=== PATIENT | male | born 1940 | race Caucasian/White ===

== ENCOUNTER 2017-12-10 12:46 | Inpatient (IN) ==
--- NOTE | 2017-12-10 10:45 | Anesthesia Evaluation PreOp ---
Date of Encounter: 12/10/17 Time of Encounter: 13:41 - Past History Planned Operation: ORIF LEFT ANKLE FRACTURE Cardiac History: Hyperlipidemia Pulmonary History: Denies Any Significant HX CLAIM REVIEW MEDICAL DIRECTOR History: Denies Any Significant HX Other Medical History: Renal (CKD), Other (CA PROSTATE, IN REMISSION, OBESITY, BMI 34) - Meds/Allergy Pre-op Review Medications Reviewed: Yes Allergies Reviewed: Yes Beta Blockers on Current Med List: No Anesthesia Results - Labs Laboratory Last Values WBC 6.7 K/mcL (4.3-11.1) 12/03/17 09:29 RBC 4.95 M/mcL (4.19-5.50) 12/03/17 09:29 Hgb 14.2 g/dL (12.9-16.9) 12/03/17 09:29 Hct 44.5 % (37.5-50.1) 12/03/17 09:29 MCV 89.9 fL (83.0-100.0) 12/03/17 09:29 MCH 28.7 pg (28.0-33.3) 12/03/17 09:29 MCHC 31.9 g/dL (31.6-35.5) 12/03/17 09:29 RDW 13.6 % (11.5-14.5) 12/03/17 09:29 Plt Count 270 K/mcL (140-400) 12/03/17 09:29 MPV 11.6 fL (9.4-12.4) 12/03/17 09:29 Immature Gran % 0.4 % (0-4) 12/03/17 09:29 Seg Neutrophils % 69.8 % 12/03/17 09:29 Lymphocytes % 16.4 % 12/03/17 09:29 Monocytes % 8.2 % 12/03/17 09:29 Eosinophils % 4.0 % 12/03/17 09:29 Basophils % 1.2 % 12/03/17 09:29 Neutrophils # 4.7 K/mcL (1.6-8.9) 12/03/17 09:29 Lymphocytes # 1.1 K/mcL (0.6-4.6) 12/03/17 09:29 Monocytes # 0.6 K/mcL (0.0-1.3) 12/03/17 09:29 Eosinophils # 0.3 K/mcL (0.0-0.6) 12/03/17 09:29 Basophils # 0.1 K/mcL (0.0-0.2) 12/03/17 09:29 Sodium 137 mEq/L (136-145) 12/03/17 09:29 Potassium 4.5 mEq/L (3.5-5.1) 12/03/17 09:29 Chloride 105 mEq/L (98-107) 12/03/17 09:29 Carbon Dioxide 23 mEq/L (23-29) 12/03/17 09:29 BUN 13 mg/dL (8-23) 12/03/17 09:29 Creatinine 1.28 mg/dL (0.70-1.30) 12/03/17 09:29 Est GFR ( Amer) > 60 (> 60) 12/03/17 09:29 Est GFR (Non-Af Amer) 54 (> 60) L 12/03/17 09:29 BUN/Creatinine Ratio 10 (6-26) 12/03/17 09:29 Glucose 112 mg/dL (70-105) H 12/03/17 09:29 Calculated Osmolality 285 (280-300) 12/03/17 09:29 Calcium 9.3 mg/dL (8.6-10.3) 12/03/17 09:29 Anesthesia Exam O2 Sat Height 1.7 m Weight 98.883 kg BMI 34 Vital Signs Temp Pulse Resp BP Pulse Ox 98.2 F 68 18 148/81 96 12/10/17 13:04 12/10/17 13:04 12/10/17 13:04 12/10/17 13:04 12/10/17 13:04 NPO (# of Hours): 8 - HEENT Mallampati: I Teeth: Normal Oral Opening: Greater than 3 - Cardiac Rhythm: Regular - Pulmonary Breath Sounds: bilateral Clear Respiratory Effort: Symmetrical Anesthesia Assess/Plan ASA Score: 2 Modified Eduardo Scale for Level of Consciousness: Cooperative, oriented, and tranquil Anesthetic Plan: Regional (SAB FOR PRIMARY ANESTHESIA AND POPLITEAL/SAPHENOUS NERVE BLOCK FOR POST OPERATIVE PAIN) Monitoring Plan: Standard Monitors Recovery Plan: PACU Anes Supervising Prov Stmt: Forsake LIST NOT UPDATED THIS VISIT PATIENT'S CHART AND CURRENT MEDICATIONS REVIEWED CURRENT MEDICATIONS: Taking Simvastatin 20 MG Tablet, Sig: Orally Taking Terazosin HCl 10 MG Capsule, Sig: Orally Patient informed and consented. Risks, benefits, and alternatives discussed. Patient wishes to proceed.
[2017-12-10] MEDS ORDERED: ROPIVACAINE HCL/PF 0.5% 30 ML VIAL ONE (13:26)
[2017-12-10] MEDS ORDERED: CeFAZolin Syr 2,000MG/20 ML 2,000 MG/20 ML SYRINGE IVPB ONE (13:48)
[2017-12-10] MEDS: Ringers Solution, Lactated 1,000 ML IVC SCH (14:01)
[2017-12-10] MEDS ORDERED: *HR* Propofol 200 MG/20 ML VIAL IVP ONE ×5 (14:32→17:18)
[2017-12-10] MEDS ORDERED: *HR* FentaNYL (PF) 100 MCG/2 ML VIAL ONE ×3 (14:32→16:22)
[2017-12-10] MEDS ORDERED: Lidocaine -MPF 2% 2 ML VIAL ONE ×3 (15:48→16:23)
--- NOTE | 2017-12-10 16:11 | History & Physical Report ---
Date of Encounter: 12/10/17 Time of Encounter: 04:00 24 Hour HP Update - Instructions Instructions: If the History and Physical is less than 30 days old and was completed prior to A.M. admission and or procedure and has NOT been updated on calendar day of procedure please complete this update prior to performing procedure. - Update Patient reports changes in Medical Condition: No Changes in examination, assessment, or condition: No Changes in Medication: No Preop tests/diagnostics Reviewed: Yes Surgery Remains Indicated: Yes Consent for Planned Operative Procedure(s) Verified: Yes - Attending Attestation proceed
[2017-12-10] MEDS ORDERED: *HR* Midazolam HCl 2 MG/2 ML VIAL ONE (16:12)
[2017-12-10] MEDS ORDERED: Ondansetron 4 MG/2 ML VIAL ONE (16:12)
[2017-12-10] MEDS ORDERED: Lidocaine -MPF 1% 5 ML AMPUL ONE (16:27)
--- NOTE | 2017-12-10 17:03 | Anesthesia Procedures ---
Date of Encounter: 12/10/17 Time of Encounter: 16:50 Procedures: Anesthesia - Nerve Block Procedure Date: 12/10/17 Time: 16:50 Allergies/Adv Reactions: nka Surgical Procedure: left ankle orif Checklist: Correct Patient Identifier, Correct procedure, History checked Correct side: Left Blood Thinner: No Monitor Applied: EKG, BP, Pulse Oximetry Indication: Post Op Analgesia Pre-op Neuro Deficits: No Block Type: Popliteal (30ml), Other (adductor canal 10ml 0.5% ropi) Catheter placed: No Sterile Technique: Yes Ultrasound used: Yes Anatomy identified: Yes Visual spread of Local: Yes Neuro Stimulation: No Blood on Needle Aspiration: No Smooth Injection of Local: Yes Pain with Injection of Local: No Prep: Chlorhexadine Needle: 21 x 100 mm Stimuplex Local: Ropivacaine, Other (decadron) Volume (cc): 40 Number of Attempts: 1 Complications: None/effective block Vitals: Vital Signs/O2 Sat/Glucose, Most Recent Temp Pulse Resp BP Pulse Ox 98.2 F 59 18 118/68 97 12/10/17 13:04 12/10/17 16:54 12/10/17 13:04 12/10/17 16:54 12/10/17 16:54
--- NOTE | 2017-12-10 17:23 | Anesthesia Procedures ---
Date of Encounter: 12/10/17 Time of Encounter: 16:45 Procedures: Anesthesia - Epidural/Spinal Patient ID/Chart reviewed: Yes Patient examined: Yes Supplemental Oxygen: Nasal Cannula Supplemental Oxygen Rate (L/min): 2 Sedation: Versed (mg): 1 Sedation: Fentanyl (mcg): 50 Site Prep: Aseptic Technique, Sterile prep and drape, 0.5% Chlorhexidine/Alcohol Patient position: upright Local Anesthetic: Lidocaine 1% Amount of Local Anesthetic used: 2 Interspace Used: L4-L5 Blood: No CSF: Yes Paresthesia: No Spinal Needle Gauge: 22 Spinal Dose: 3ml 0.5% marcaine PF Vitals + FHT's: Vital Signs/O2 Sat, Most Current Temp Pulse Resp BP Pulse Ox 98.2 F 59 18 118/68 97 12/10/17 13:04 12/10/17 16:54 12/10/17 13:04 12/10/17 16:54 12/10/17 16:54
[2017-12-10] MEDS ORDERED: Ondansetron 4 MG/2 ML VIAL IVP ONE (17:25)
--- NOTE | 2017-12-10 18:11 | Operative Note ---
Date of procedure: 12/10/17 Pre-op diagnosis: left ankle fracture Post-op diagnosis: same Procedure: ORIF left medial malleolus fracture ORIF of syndesmosis Implants: synthes 3.0mm partially threaded cannulated screw Arthrex tight rope Complications: none Anesthesia: other (spinal block), IV sedation Surgeon: Billy Mandel Was there an resident assistant cna present: No Estimated blood loss (cc): 10 Specimen: none Condition: stable Disposition: PACU Procedure in Detail: Indications: 77-year-old male with pronation external rotation type ankle fracture and high fibula [place] fracture with increasing displacement of the medial malleolar fracture on outside facility xrays referred by Dr. Cuevas. The nature of the above procedures, risks versus benefits potential complications consequences of surgery and his condition discussed at length. 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 All of his questions have been answered and the informed consent was signed. Patient had been placed on outpatient in a bed order. Patient was taken from the preoperative holding area given a popliteal block by anesthesia [facility] operating room placed on the operating room table in the supine position. The left lower extremity was scrubbed prepped and draped in the usual sterile fashion and the following procedure began. ORIF left ankle fracture and syndesmosis. Attention was directed the medial aspect of the patient's right foot were #15 blade was used to make an incision approximately or centimeters in length. Skin incision was deepened through sharp and blunt dissection down to the level of the periosteum over the medial malleolus which was incised exposing the fracture zone of the medial malleolus. The fracture was rotated and displaced. Hematoma was evacuated from the fracture site bone curet used to freshen the edges of the fracture zone and a reduction clamp was utilized to hold the fracture in a reduced position and it was pinned temporarily with K wires. C-arm was utilized to confirm position and alignment. Next using a Synthes 3.0 partially threaded cannulated screw was thrown across the fracture site and excellent compression was noted. Attention was then directed laterally where the syndesmosis was stressed and felt to have a decrease in tib-fib overlap with syndesmotic instability. An incision was made over the lateral aspect of the ankle approximately 3 cm from the joint extending proximally and a cotton hook test was performed with instability of the syndesmosis detected. Next an Arthrex tight rope was thrown using standard technique to stabilize the syndesmosis. The syndesmosis was held in a reduced position during implantation of the Arthrex tight rope. Syndesmotic instability was felt to have been achieved and there was no longer increased motion felt to be present at the syndesmosis. The surgical sites were flushed with normal sterile saline. Deep and subcutaneous tissues were closed with 2-0 Vicryl and the skin reapproximated with nylon and mohini. Postoperative bandaging included Xeroform, 4 x 4 gauze, Kerlix and an adequately padded posterior splint. The patient tolerated the anesthesia and the procedure well escorted the recovery room with vital signs stable and vascular status intact to the left foot noted by instant capillary refill time to all digits. Patient to remain nonweightbearing to the left lower extremity using assistive devices. He will be evaluated by physical therapy and social work for group home facility placement. Follow-up in one week after discharge from the hospital.
[2017-12-10] MEDS ORDERED: Ondansetron 4 MG/2 ML VIAL IVP PRN (18:19)
--- NOTE | 2017-12-10 18:46 | Anesthesia Evaluation Post Op ---
Date of Encounter: 12/10/17 Time of Encounter: 18:46 - Discharge PostOp Status: Transfer Patient to floor (Patient's vital signs have been reviewed. Patient is stable postoperatively and has adequately recovered from anesthesia. Patient is determined to have stable airway patency and respiratory function including respiratory rate and oxygen saturation. Patient has a stable heart rate, blood pressure and adequate hydration. Patients mental status is acceptable. Patients temperature is appropriate. Pain and nausea are adequately controlled.)
[2017-12-11] MEDS: ceFAZolin 1,000 MG in Water for inj. (sterile) 20 ML 10 ML IVP SCH ×3 (00:29→17:14)
[2017-12-11] MEDS: *HR* Enoxaparin 40 MG/0.4 ML SYRINGE SQ SCH (06:24)
--- NOTE | 2017-12-11 08:00 | Podiatry Progress Note ---
Date of Encounter: 12/11/17 Time of Encounter: 07:30 - Assessment and Plan (1) Ankle fracture, left Current Visit: Yes Status: Acute s/p ORIF left ankle fracture discussed surgical procedure and course of recovery. Patient to remain nonweightbearing to the left lower extremity. Follow-up physical therapy and social work consult for longterm placement. Patient at risk for falls at home and trouble remaining nonweightbearing to the left lower extremity. If patient weight bears, he is at risk for non-union or complications arising. DVT ppx. Qualifiers: Encounter type: initial encounter Fracture type: closed Qualified Code(s) : S82.892A - Other fracture of left lower leg, initial encounter for closed fracture Subjective Interval history: day 1 s/p left ankle ORIF. denies feeling like he experienced f/c/n/v/sob/cp/ calf pain. pain is controlled. no problems overnight. Objective - Vital Signs Vital Signs: Vital Signs Temp Pulse Resp BP Pulse Ox 12/11/17 06:42 98.1 F 90 18 107/55 96 12/11/17 03:34 97.9 F 59 17 118/58 92 12/10/17 22:46 98.1 F 59 18 146/72 95 12/10/17 19:36 98.3 F 65 16 128/72 95 12/10/17 18:54 97.5 F L 51 16 126/61 96 12/10/17 18:44 97.5 F L 53 16 120/68 96 12/10/17 18:34 54 14 125/66 97 12/10/17 18:24 58 14 109/62 95 12/10/17 18:14 97.3 F L 52 16 116/65 97 12/10/17 16:54 59 118/68 97 12/10/17 16:48 64 131/66 96 12/10/17 16:30 64 144/80 95 12/10/17 13:04 98.2 F 68 18 148/81 96 Intake and Output 12/10/17 12/10/17 12/11/17 15:59 23:59 07:59 Intake Total 200 / 200 Output Total 800 / 800 Balance -600 / -600 Intake: IV Fluids 20 / 20 Ancef Syringe 2,000 MG/20 ML 2, 20 / 20 000 mg In 20 ml @ 200 mls/hr IVPB PREOP ONE Rx#:[id number] Oral 200 / 200 Output: Urine 800 / 800 Estimated Blood Loss Other: # Voids 1 Weight 98.883 kg 98.884 kg - Exam Exam: well developed and nourished male in no acute distress CFT < 3 sec x 5 digits left foot. patient can flex and extend digits of the left foot. no strikethrough. no pain with calf squeeze. some numbness of digits left foot. Consult Discharge Plan - Plan Referrals: Magy Brooks DO [Primary Care Provider] -
[2017-12-11] MEDS: Aspirin 81 MG TAB.CHEW PO SCH (08:16)
[2017-12-11] MEDS: Cholecalciferol (D-3) 1,000 UNIT TABLET PO SCH (08:17)
[2017-12-11] MEDS: Ringers Solution, Lactated 1,000 ML IVC SCH (17:16)
[2017-12-11] MEDS: *HR* OxyCODONE/APAP 5/325 TABLET PO PRN (21:47)
--- NOTE | 2017-12-12 01:17 | Physician Discharge Referral ---
ExtendedCare Referral Info Transfer To: SNF Provider in Charge: Billy Mandel Provider in Charge after Transfer: PCP Institutional Level of Care: Skilled - Diagnosis (1) Ankle fracture, left Status: Acute Expected Duration of Placement: 6 weeks Prognosis: Fair - Transfer Medications Home Medications: Aspirin [Lo-Dose Aspirin EC] 81 mg PO DAILY 12/10/17 [History] Calcium Carbonate [Calcium] 500 mg PO BID 12/10/17 [History] Multivit-Min/Iron/Folic Acid/K [Adults Multivitamin Tablet] 1 each PO DAILY 12/18 [History] Simvastatin [Zocor] 20 mg PO DAILY 12/10/17 [History] Terazosin HCl 5 mg PO BID 12/10/17 [History] Cholecalciferol (D-3) [Vitamin D] 1,000 unit PO DAILY tablet 12/12/17 [Rx] Enoxaparin [Lovenox] 40 mg SQ 0600 syringe 12/12/17 [Rx] OxyCODONE/APAP 5/325 [Percocet 5/325 MG] 1 each PO Q4HR PRN 4 Days #24 tablet [Rx] Allergies/Adverse Reactions: 3 Allergy/AdvReac Type Severity Reaction Status Date / Time No Known Allergies Allergy Verified 12/10/17 13:47 - Respiratory Orders Smoking Cessation: Smoking cessation has been advised. For more information, call the [place] Tobacco Quit Line at 6-081-FGQH-NOW. - Ancillary Orders May use pressure relief devices daily prn - Mobility Orders Other (Non-weight bearing left lower extremity) - Rehabiliation Orders Rehab Potential: Fair Rehab Orders: Evaluation for Physical Therapy Other: gait training for non-weight bearing left lower extremity using front wheeled walker - Diet Orders Regular CERTIFICATION: I certify that the transfer of the above named patient to an Extended Care Facility is necessary for the continuing treatment of the diagnosis listed. The above information is true and accurate reflection of patient's current condition. Confidential - Redisclosure prohibited without a patient's written consent.
[2017-12-12] MEDS: *HR* OxyCODONE/APAP 5/325 TABLET PO PRN ×3 (03:13→17:44)
[2017-12-12] MEDS: *HR* Enoxaparin 40 MG/0.4 ML SYRINGE SQ SCH (06:18)
[2017-12-12] MEDS: Aspirin 81 MG TAB.CHEW PO SCH (10:12)
[2017-12-12] MEDS: Cholecalciferol (D-3) 1,000 UNIT TABLET PO SCH (10:12)
[2017-12-12] MEDS: Ringers Solution, Lactated 1,000 ML IVC SCH (16:30)
--- NOTE | 2017-12-12 21:11 | Podiatry Progress Note ---
Date of Encounter: 12/12/17 Time of Encounter: 05:10 - Assessment and Plan (1) Ankle fracture, left Current Visit: Yes Status: Acute s/p ORIF left ankle fracture Reviewed with patient course of recovery and importance to remain nonweightbearing to the left lower extremity. Elevation. Awaiting rehabilitation placement. He will require follow-up the week after discharge from the hospital in my office. Qualifiers: Encounter type: initial encounter Fracture type: closed Qualified Code(s) : S82.892A - Other fracture of left lower leg, initial encounter for closed fracture Subjective Interval history: day #2 s/p left ankle ORIF. denies feeling like he experienced f/c/n/v/sob/cp/ calf pain. pain is controlled. no problems overnight. Objective - Vital Signs Vital Signs: Vital Signs Temp Pulse Resp BP Pulse Ox 12/12/17 20:22 98.0 F 93 17 134/69 95 12/12/17 15:11 97.7 F 69 18 120/61 96 12/12/17 11:04 97.6 F 66 18 135/70 95 12/12/17 06:48 97.6 F 85 18 148/70 95 12/12/17 04:04 57 16 102/56 93 12/12/17 00:41 97.6 F 61 16 110/65 95 Intake and Output 12/12/17 12/12/17 12/12/17 07:59 15:59 23:59 Intake Total 600 / 600 Output Total 1025 / 1025 650 / 650 300 / 300 Balance -1025 / -1025 -50 / -50 -300 / -300 Intake: Oral 600 / 600 Output: Urine 1025 / 1025 650 / 650 300 / 300 Other: Meal Lunch Percent of Meal Consumed 100% # Voids 1 Weight 98.885 kg Patient Weight 12/12/17 23:59 Weight 98.885 kg - Exam Exam: Well-developed and nourished male in no acute distress Patient can flex and extend digits of the left foot. Left foot digits are warm to touch. No strikethrough on bandage. No calf pain with squeeze. Consult Discharge Plan - Plan Referrals: Magy Brooks DO [Primary Care Provider] -
[2017-12-13] MEDS: *HR* Enoxaparin 40 MG/0.4 ML SYRINGE SQ SCH (05:25)
[2017-12-13] MEDS: *HR* OxyCODONE/APAP 5/325 TABLET PO PRN ×2 (06:20→17:44)
[2017-12-13] MEDS: Aspirin 81 MG TAB.CHEW PO SCH (09:03)
[2017-12-13] MEDS: Cholecalciferol (D-3) 1,000 UNIT TABLET PO SCH (09:03)
--- NOTE | 2017-12-13 11:42 | Podiatry Progress Note ---
Date of Encounter: 12/13/17 Time of Encounter: 09:00 - Assessment and Plan (1) Ankle fracture, left Current Visit: Yes Status: Acute s/p ORIF left ankle fracture Reviewed with patient course of recovery and importance to remain nonweightbearing to the left lower extremity. Elevation. Awaiting rehabilitation placement. He will require follow-up the week after discharge from the hospital in my office. Qualifiers: Encounter type: initial encounter Fracture type: closed Qualified Code(s) : S82.892A - Other fracture of left lower leg, initial encounter for closed fracture Subjective Interval history: day #3 s/p left ankle ORIF. denies feeling like he experienced f/c/n/v/sob/cp/ calf pain. pain is controlled. no problems overnight. says he is doing fine. Objective - Vital Signs Vital Signs: Vital Signs Temp Pulse Resp BP Pulse Ox 12/13/17 10:42 97.6 F 71 16 149/56 95 12/13/17 06:41 97.5 F L 57 16 139/74 95 12/13/17 03:48 97.9 F 70 17 131/68 95 12/13/17 00:35 98.2 F 62 16 131/77 94 12/12/17 20:22 98.0 F 93 17 134/69 95 12/12/17 15:11 97.7 F 69 18 120/61 96 Intake and Output 12/12/17 12/13/17 12/13/17 23:59 07:59 15:59 Intake Total 240 / 240 Output Total 300 / 300 1450 / 1450 Balance -300 / -300 -1450 / -1450 240 / 240 Intake: Oral 240 / 240 Output: Urine 300 / 300 1450 / 1450 Other: Meal Breakfast Percent of Meal Consumed 100% # Voids 1 - Exam Exam: posterior splint clean, dry and intact. no strikethrough. can flex and extend digits of the left foot. left foot sensation intact to the digits. Consult Discharge Plan - Plan Referrals: Magy Brooks DO [Primary Care Provider] -
[2017-12-13] MEDS: Ringers Solution, Lactated 1,000 ML IVC SCH (17:46)
--- NOTE | 2017-12-13 17:52 | Discharge Summary ---
Date of Encounter: 12/13/17 Time of Encounter: 09:00 Orders not resulted at time of discharge: Pending orders 12/10/17 07:50 US anesthesia pain block [US] Routine - Discharge Diagnosis (1) Ankle fracture, left Priority: Primary Status: Acute Qualifiers: Encounter type: initial encounter Fracture type: closed Qualified Code(s) : S82.892A - Other fracture of left lower leg, initial encounter for closed fracture Procedures and tests throughout hospitalization: left ankle ORIF - Impressions ITS Impressions Ankle X-Ray 12/10/17 17:15 IMPRESSION: Intraprocedural fluoroscopic spot images as above. See separate procedure report for more information. D/ : / 12/10/2017 21:27:52 Sia Gonzalez MD / rodrigo Interpreting Provider: Sia Gonzalez MD Fluoroscopy 12/10/17 17:15 IMPRESSION: Intraprocedural fluoroscopic spot images as above. See separate procedure report for more information. D/ : / 12/10/2017 21:27:52 Sia Gonzalez MD / rodrigo Interpreting Provider: Sia Gonzalez MD - Hospital Course Hospital course: Mr. Crow is a 77 year old male Time spent discussing smoking cessation with patient: more than 10 minutes - Time Spent with Patient Total time spent providing and/or coordinating discharge services: Greater than 30 minutes - Discharge Medications Prescriptions: Oxycodone HCl/Acetaminophen [Percocet 5-325 mg Tablet] 1 each PO Q6H PRN 5 Days #20 tablet PRN Reason: Pain Home Medications: Aspirin [Lo-Dose Aspirin EC] 81 mg PO DAILY 12/10/17 [History] Calcium Carbonate [Calcium] 500 mg PO BID 12/10/17 [History] Multivit-Min/Iron/Folic Acid/K [Adults Multivitamin Tablet] 1 each PO DAILY 12/18 [History] Simvastatin [Zocor] 20 mg PO DAILY 12/10/17 [History] Terazosin HCl 5 mg PO BID 12/10/17 [History] Cholecalciferol (D-3) [Vitamin D] 1,000 unit PO DAILY tablet 12/12/17 [Rx] Enoxaparin [Lovenox] 40 mg SQ 0600 syringe 12/12/17 [Rx] OxyCODONE/APAP 5/325 [Percocet 5/325 MG] 1 each PO Q4HR PRN 4 Days #24 tablet [Rx] Oxycodone HCl/Acetaminophen [Percocet 5-325 mg Tablet] 1 each PO Q6H PRN 5 Days #20 tablet 12/13/17 [Rx] Allergies/Adverse Reactions: 3 Allergy/AdvReac Type Severity Reaction Status Date / Time No Known Allergies Allergy Verified 12/10/17 13:47 Date of admission: 12/11/17 13:30 Primary care physician: Magy Brooks Consults: 12/10/17 18:24 Consult to Physical Therapy [CONS] Routine Comment: Evaluate, develop and implement POC Reason for Consult: evaluate for rehab placement, patient non-weight bearing Does patient have active BEDREST order?: No Is patient medically & hemodynamically stable?: Yes 12/10/17 18:27 Consult to Electronics Warfare Technician [CONS] Routine Reason for SW Consult: longterm facility placement 12/11/17 12:09 Consult to Occupational Therapy [CONS] Routine Comment: Evaluate, develop and implement POC Reason for Consult: eval Does patient have active BEDREST order?: No Is patient medically & hemodynamically stable?: Yes Patient assessed for mobility or mobilized this visit?: No - Patient Status Disposition: Transfer SNF Condition: Fair Functional capacity at discharge: uses cane/walker Overall status at discharge: patient is not back to baseline - Discharge Instructions Follow Up With: Magy Brooks DO [Primary Care Provider] - Billy Mandel DPM [Partnered Physician] - Additional Instructions: Lovenox 40mg subq daily at facility for 2 weeks after discharge from the hospital. Resume all home medication. Prescription given for Percocet. Patient to remain nonweightbearing to the left lower extremity using walker or other assistive device. Leave posterior splint and bandage clean dry and intact. Do not remove. - Diet and Activity Activity: other (non-weight bearing left lower extremity) Diet: low salt diet
[2017-12-14] MEDS: *HR* Enoxaparin 40 MG/0.4 ML SYRINGE SQ SCH (06:02)
[2017-12-14 06:33] VITALS: BP 144/76
[2017-12-14] MEDS: *HR* OxyCODONE/APAP 5/325 TABLET PO PRN ×2 (06:39→10:54)
[2017-12-14] MEDS: Aspirin 81 MG TAB.CHEW PO SCH (09:34)
[2017-12-14] MEDS: Cholecalciferol (D-3) 1,000 UNIT TABLET PO SCH (09:34)
--- NOTE | 2017-12-14 10:28 | Podiatry Progress Note ---
Date of Encounter: 12/14/17 Time of Encounter: 09:00 - Assessment and Plan (1) Ankle fracture, left Current Visit: Yes Status: Acute s/p ORIF left ankle fracture stable for discharge. discussed discharge and follow up with patient. remain non -weight bearing to the left lower extremity. f/u next week. Qualifiers: Encounter type: initial encounter Fracture type: closed Qualified Code(s) : S82.892A - Other fracture of left lower leg, initial encounter for closed fracture Subjective Interval history: s/p left ankle ORIF. leaving for rehab today. denies any overnight events. Objective - Vital Signs Vital Signs: Vital Signs Temp Pulse Resp BP Pulse Ox 12/14/17 06:32 97.8 F 70 16 144/76 93 12/14/17 04:25 97.6 F 58 17 143/77 94 12/13/17 22:57 97.4 F L 63 18 134/70 94 12/13/17 18:40 98.1 F 71 16 144/76 95 12/13/17 15:59 97.7 F 60 16 127/56 97 12/13/17 10:42 97.6 F 71 16 149/56 95 Intake and Output 12/13/17 12/14/17 12/14/17 23:59 07:59 15:59 Intake Total 0 / 0 0 / 0 Output Total 650 / 650 1300 / 1300 450 / 450 Balance -650 / -650 -1300 / -1300 -450 / -450 Intake: Oral 0 / 0 0 / 0 Output: Urine 650 / 650 1300 / 1300 450 / 450 Other: Meal Dinner Breakfast Percent of Meal Consumed 90% 100% # Voids 1 1 Weight 100.51 kg Patient Weight 12/14/17 23:59 Weight 100.51 kg - Exam Exam: posterior splint clean, dry and intact. Consult Discharge Plan - Plan Instructions: Open Reduction and Internal Fixation of an Ankle Fracture (DC) Additional Instructions: Lovenox 40mg subq daily at facility for 2 weeks after discharge from the hospital. Resume all home medication. Prescription given for Percocet. Patient to remain nonweightbearing to the left lower extremity using walker or other assistive device. Leave posterior splint and bandage clean dry and intact. Do not remove. Referrals: Billy Mandel DPM [Partnered Physician] - Magy Brooks DO [Primary Care Provider] - Prescriptions: Oxycodone HCl/Acetaminophen [Percocet 5-325 mg Tablet] 1 each PO Q6H PRN 5 Days #20 tablet PRN Reason: Pain
== END 2017-12-14 10:59 | DRG 494 ==
LOC: SAMDAY 12:46 → 3NENU 19:29
PROVIDERS: ADMIT Podiatrist; ATTEND Podiatrist

== ENCOUNTER 2021-09-24 16:11 | Observation (INO) ==
[2021-09-24 17:01] LABS: BUN/Creatinine Ratio 17 (6-26); Basophils # 0.1 K/mcL (0.0-0.2); Basophils % 1.2 %; Blood Urea Nitrogen 15 mg/dL (8-23); Calcium 8.6 mg/dL (8.6-10.3); Carbon Dioxide 27 mEq/L (23-29); Chloride 108 mEq/L (98-107); Eosinophils # 0.2 K/mcL (0.0-0.6); Eosinophils % 3.5 %; Glucose 91 mg/dL (70-105); Hematocrit 45.9 % (37.5-50.1); Hemoglobin 14.6 g/dL (12.9-16.9); Immature Granulocytes % 0.4 % (0-4); Lymphocytes # 1.2 K/mcL (0.6-4.6); Lymphocytes % 17.2 %; Mean Corpuscular HGB Conc 31.8 g/dL (31.6-35.5); Mean Corpuscular Hemoglobin 29.1 pg (28.0-33.3); Mean Corpuscular Volume 91.4 fL (83.0-100.0); Mean Platelet Volume 11.6 fL (9.4-12.4); Monocytes # 0.5 K/mcL (0.0-1.3); Neutrophils # 4.9 K/mcL (1.6-8.9); Osmolality,Calculated 292 (280-300); Platelet Count 192 K/mcL (140-400); Potassium 3.9 mEq/L (3.5-5.1); Red Blood Count 5.02 M/mcL (4.19-5.50); Red Cell Distribution Width 13.3 % (11.5-14.5); Segmented Neutrophils % 70.7 %; Sodium 141 mEq/L (136-145); Troponin I < 0.03 ng/mL (< 0.04); White Blood Count 6.9 K/mcL (4.3-11.1); eGFR For African Americans > 60 (> 60); eGFR For Non-African Americans > 60 (> 60)
[2021-09-24 17:05] LABS: Prothrombin Time 11.5 Seconds (9.4-12.1)
[2021-09-24 17:08] LABS: Activated Partial Thrombo Time 36.2 Seconds (26.0-36.0)
[2021-09-24] MEDS ORDERED: Ondansetron ODT 4 MG TAB.RAPDIS SL PRN (20:35)
[2021-09-24] MEDS ORDERED: *HR* OxyCODONE Immed Rel 5 MG TABLET PO PRN (20:35)
[2021-09-24] MEDS ORDERED: Naloxone 0.4 MG/ML INJ IVP PRN (20:35)
[2021-09-24] MEDS ORDERED: *HR* HYDROcodone/Acet 5/325 mg TABLET PO PRN (20:35)
[2021-09-24] MEDS ORDERED: Acetaminophen 325 MG TABLET PO PRN (20:35)
[2021-09-24] MEDS ORDERED: Melatonin 3 MG TABLET PO PRN (20:35)
[2021-09-24] MEDS ORDERED: Perflutren Lipid Microsphere 1.3 ML in 0.9 % Sodium Chloride 8.7 ML IVP PRN (20:37)
[2021-09-25 05:52] LABS: Hemoglobin 14.2 g/dL (12.9-16.9); Mean Corpuscular HGB Conc 32.3 g/dL (31.6-35.5); Mean Platelet Volume 11.8 fL (9.4-12.4); Platelet Count 192 K/mcL (140-400); Red Blood Count 4.89 M/mcL (4.19-5.50); Red Cell Distribution Width 13.2 % (11.5-14.5); White Blood Count 6.6 K/mcL (4.3-11.1)
[2021-09-25 07:16] LABS: BUN/Creatinine Ratio 16 (6-26); Blood Urea Nitrogen 15 mg/dL (8-23); Calcium 8.4 mg/dL (8.6-10.3); Carbon Dioxide 19 mEq/L (23-29); Chloride 109 mEq/L (98-107); Chol/HDL Ratio 2.6 (0-4.9); Cholesterol 97 mg/dL (< 200); Glucose 80 mg/dL (70-105); HDL Cholesterol 38 mg/dL (40-59); LDL Cholesterol,Calculated 41 mg/dL (< 100); Magnesium 2.1 mg/dL (1.6-2.6); Osmolality,Calculated 290 (280-300); Potassium 4.2 mEq/L (3.5-5.1); Sodium 140 mEq/L (136-145); Thyroid Stimulating Hormone 2.845 mcIU/mL (0.340-5.600); Triglycerides 91 mg/dL (< 150); Troponin I < 0.03 ng/mL (< 0.04); eGFR For African Americans > 60 (> 60); eGFR For Non-African Americans > 60 (> 60)
[2021-09-25 08:49] LABS: Bilirubin,Urine Negative (Negative); Blood,Urine Trace-intact (Negative); Clarity,Urine Clear (Clear); Color,Urine Yellow (Yellow); Glucose,Urine (UA) Normal (Normal); Ketones,Urine Negative (Negative); Leukocyte Esterase,Urine Negative (Negative); Nitrite,Urine Negative (Negative); Protein,Urine Negative (Neg-Trace); Urobilinogen,Urine Normal (Normal)
[2021-09-25 09:16] LABS: Bacteria,Urine Few per hpf (None-Few); Squamous Epithelial Cell,Urine Few per hpf (None-Few); WBC,Urine 0-3 per hpf (0-3)
[2021-09-25] MEDS ORDERED: *HR* Heparin 5,000 UNIT/ML VIAL IVP ONE (13:53)
[2021-09-25] MEDS ORDERED: *HR* Heparin 5,000 UNIT/ML VIAL IVP PRN ×2 (13:53)
[2021-09-25] MEDS: Heparin 25,000UNIT/250ML 1/2NS 25,000 UNIT/250 ML IV.SOLN IVC SCH (15:23)
[2021-09-25 18:18] LABS: Heparin anti-factor XA UFH 0.99 IU/mL (0.30-0.70); INR 1.1; Prothrombin Time 12.6 Seconds (9.4-12.1)
[2021-09-25] MEDS: Budesonide/Formoterol 80/4.5 1 PUFF INH IH SCH (20:04)
[2021-09-26 07:41] VITALS: TEMP 97.7
[2021-09-26] MEDS: Budesonide/Formoterol 80/4.5 1 PUFF INH IH SCH (07:50)
[2021-09-26] MEDS ORDERED: Multivit/Ca/Min/Fe/FA 1 TAB TABLET PO SCH (09:00)
[2021-09-26] MEDS ORDERED: Aspirin Enteric Coated 81 MG Tablet PO SCH (09:00)
[2021-09-26] MEDS ORDERED: Cholecalciferol (D-3) 1,000 UNIT (25MCG) TABLET PO SCH (09:00)
[2021-09-26 11:02] VITALS: BP 122/68; PULSE 62; O2SAT 94
[2021-09-26 12:11] LABS: Basophils # 0.1 K/mcL (0.0-0.2); Basophils % 1.2 %; Eosinophils # 0.2 K/mcL (0.0-0.6); Eosinophils % 2.4 %; Hematocrit 46.2 % (37.5-50.1); Hemoglobin 14.8 g/dL (12.9-16.9); Immature Granulocytes % 0.2 % (0-4); Lymphocytes # 1.3 K/mcL (0.6-4.6); Mean Corpuscular Hemoglobin 28.9 pg (28.0-33.3); Mean Corpuscular Volume 90.2 fL (83.0-100.0); Mean Platelet Volume 11.9 fL (9.4-12.4); Monocytes # 0.4 K/mcL (0.0-1.3); Monocytes % 6.6 %; Neutrophils # 4.6 K/mcL (1.6-8.9); Platelet Count 204 K/mcL (140-400); Red Blood Count 5.12 M/mcL (4.19-5.50); Red Cell Distribution Width 13.2 % (11.5-14.5); Segmented Neutrophils % 69.6 %; White Blood Count 6.7 K/mcL (4.3-11.1)
[2021-09-26 12:48] LABS: BUN/Creatinine Ratio 17 (6-26); Blood Urea Nitrogen 16 mg/dL (8-23); Calcium 8.6 mg/dL (8.6-10.3); Carbon Dioxide 21 mEq/L (23-29); Chloride 105 mEq/L (98-107); Glucose 133 mg/dL (70-105); Osmolality,Calculated 285 (280-300); Potassium 3.9 mEq/L (3.5-5.1); Sodium 136 mEq/L (136-145); eGFR For African Americans > 60 (> 60); eGFR For Non-African Americans > 60 (> 60)
[2021-09-26] MEDS: *HR* Rivaroxaban 10 MG TABLET PO SCH ×2 (15:17→15:26)
[2021-09-26] MEDS: Heparin 25,000UNIT/250ML 1/2NS 25,000 UNIT/250 ML IV.SOLN IVC SCH (15:19)
== END 2021-09-26 15:46 | disposition home or self-care (01) ==
LOC: EMEROOARM 16:11 → 3BNU 16:11 → SUATTDRO 09-25 12:25 → 3BNU 09-25 14:03
PROVIDERS: ADMIT Internal Medicine; ATTEND Nurse Practitioner